=== PATIENT | male | born 1990 | race Caucasian/White ===

== ENCOUNTER 2018-05-31 11:33 | Emergency (ER) | payer MEDICAID ==
[2018-05-31 13:11] LABS: ADD MAN DIFF? NO
[2018-05-31 13:17] LABS: WHITE BLOOD COUNT 10.2 10^3/ul (4.8-10.8)
[2018-05-31 13:17] LABS: BASOPHIL # 0.1 10^3/ul (0.0-0.1); BASOPHILS % 0.6 % (0.0-2.0); EOSINOPHILS # 0.2 10^3/ul (0.0-0.5); EOSINOPHILS % 1.8 % (0.0-7.0); HEMATOCRIT 42.6 % (42.0-52.0); HEMOGLOBIN 14.3 g/dl (14.0-18.0); LYMPHOCYTES % 29.7 % (15.0-51.0); MEAN CORPUSCULAR HGB CONC 33.6 g/dl (32.0-37.0); MEAN CORPUSCULAR VOLUME 86.4 fl (82.0-101.0); MEAN PLATELET VOLUME 10.3 fl (7.4-10.4); MONOCYTE # 0.8 10^3/ul (0.3-0.9); MONOCYTES % 7.9 % (0.0-11.0); NEUTROPHIL # 6.1 10^3/ul (1.6-7.5); NEUTROPHILS % 59.7 % (39.0-77.0); PLATELET COUNT 303 10^3/UL (140-415); RED BLOOD COUNT 4.93 10^6/ul (4.70-6.10)
[2018-05-31 13:35] LABS: ALANINE AMINOTRANSFERASE 135 IU/L (13-69); ALBUMIN 4.4 g/dl (3.3-4.9); ALBUMIN/GLOBULIN RATIO 1.22; ALKALINE PHOSPHATASE 109 IU/L (42-121); ANION GAP 8 (5-13); ASPARTATE AMINO TRANSFERASE 78 IU/L (15-46); BILIRUBIN,INDIRECT 0.1 mg/dl (0-1.1); BILIRUBIN,TOTAL 0.1 mg/dl (0.2-1.3); BLOOD UREA NITROGEN 12 mg/dl (7-20); CALCIUM 9.4 mg/dl (8.4-10.2); CARBON DIOXIDE 29 mmol/L (21-31); CHLORIDE 104 mmol/L (97-110); CREATININE 0.62 mg/dl (0.61-1.24); Estimated GFR > 60 mL/min (>60); GLUCOSE 110 mg/dl (70-220); POTASSIUM 3.8 mmol/L (3.5-5.1); SODIUM 141 mmol/L (135-144)
[2018-05-31 13:46] LABS: TROPONIN-I < 0.012 ng/ml (0.000-0.120)
== END 2018-05-31 15:36 | disposition home or self-care (01) ==
LOC: FTE 11:33
DX: R07.89 Other chest pain (principal)
CPT/HCPCS: 71045; 80053; 84484; 85025; 93005; 99285-25

== ENCOUNTER 2019-01-03 21:59 | Emergency (ER) | payer MEDICAID ==
[2019-01-03] MEDS: KETOROLAC 30 MG INJ IM (23:36)
== END 2019-01-04 01:53 | disposition home or self-care (01) ==
LOC: FTE 01-04 01:53
DX: S20.212A Contusion of left front wall of thorax, initial encounter (principal); V87.7XXA Person injured in collision between other specified motor vehicles (traffic), initial encounter
CPT/HCPCS: 71100; 96372; 99284-25